=== PATIENT | male | born 1955 | race Caucasian/White ===

== ENCOUNTER → 2024-01-16 14:18 | Outpatient (REF) | payer MEDICARE, OTHER, SELFPAY | LOC: SDSPAT 14:18 | PROVIDERS: ATTENDING PHYSICIAN Surgery; FAMILY PHYSICIAN Family Medicine | DX: K42.9 Umbilical hernia without obstruction or gangrene (principal) | CPT/HCPCS: 36415; 93005 ==

== ENCOUNTER 2024-02-06 06:57 | Day surgery (SDC) | payer MEDICARE, OTHER, SELFPAY ==
[2024-01-16 14:30] VITALS: BMI 31.2
[2024-02-06] VITALS (8 sets, daily range): BP systolic 135–147; BP diastolic 69–85
[2024-02-06] MEDS: TYLENOL 1000 MG PO (12:05)
--- NOTE | 2024-02-06 15:38 | W.IMMPOSTOP ---
Surgical Immed Post Op Note
-
Primary Surgeon: Rashard
Assisting: Tori SOLIS
Pre-op Diagnosis: Umbilical hernia
Post-op Diagnosis: Incarcerated umbilical hernia
Procedure Performed: Robot assisted laparosopxcic repair of incarcwerated umbilical hernia (rTAPP)
Anesthesia Type: GETA + TAP block
Specimen / Cultures: None
Estimated Blood Loss: 5cc
Complications: None immediate
Operative Findings: 3.1cm x 2.2cm defect; 12cm x 12cm bard soft mesh
--- NOTE | 2024-02-06 15:39 | OR.RPT ---
Operative Report
Operative Report
Primary Surgeon: Rashard
Assisting: Tori SOLIS
Pre-op Diagnosis: Umbilical hernia
Post-op Diagnosis: Incarcerated umbilical hernia
Procedure Performed: Robot assisted laparoscopic repair of incarcerated umbilical hernia (rTAPP)
Anesthesia Type: GETA + TAP block
Specimen / Cultures: None
Estimated Blood Loss: 5cc
Complications: None immediate
Operative Findings: 3.1cm x 2.2cm defect; 12cm x 12cm bard soft mesh
Date of Surgery:� 02/06/24
Indications:� This 68M developed�a symptomatic umbilical hernia. Repair was thus indicated and laparoscopic approach was elected.
Description of procedure:� The patient was taken to the operating room and the correct site of surgery was verified. General anesthesia was induced and the patient was placed supine on the operating table with arms tucked.� The patient�s abdomen was
prepped and draped in standard sterile fashion. A time-out was completed verifying correct patient, procedure, site, positioning, and implants and special equipment prior to beginning this procedure. A stab incision was made in the left upper
quadrant, a Veress needle was inserted and proper position was confirmed by aspiration and saline drop test. Following this, pneumoperitoneum was created with insufflation of carbon dioxide to 12 mmHg. Then a 8mm robotic trocar was inserted at the
left anterior axillary line at the level of the umbilicus. A laparoscope was inserted and the area of initial trocar entry and Veress needle placement were both inspected and free of trauma. Two 8mm trocars were then placed a hand's breadth above
and below the initial trocar under direct visualization. The peritoneum was incised at the falciform ligament and a flap was developed in transverse and caudad directions using blunt and sharp dissection. The umbilical defect measured as above and
contained incarcerated fat. The defect was closed with 0 PDS stratafix suture.� A 12 x 12cm piece of bard soft mesh was passed into the abdomen. The mesh was moved into position to lay flat against the abdominal wall, centered on the defect. The
mesh was secured into place using 2-0 vicryl suture under the defect and at all four corners as well as correction along each side.� A 2-0 monocryl stratafix was used to close the flap. Additional 2-0 monocryl stratafix was used to repair flap rents
bilaterally. A transversus abdominis plane block was performed under laparoscopic vision using decadron/marcaine. After ensuring adequate hemostasis, the trocars were removed and the pneumoperitoneum allowed to escape. The trocar incisions were
closed at the skin level using 4-0 monocryl and topical skin adhesive. The patient tolerated the procedure well and was taken to the postanesthesia care unit in stable condition.
The assistance of Tori SOLIS was required due to the complexity of the procedure. During the procedure he assisted with retraction, resection, and closure of the wound.
== END 2024-02-06 17:28 | disposition home or self-care (01) ==
LOC: SDS 06:57
PROVIDERS: ATTENDING PHYSICIAN Surgery; FAMILY PHYSICIAN Family Medicine
DX: K42.0 Umbilical hernia with obstruction, without gangrene (principal)
CPT/HCPCS: 49592; C1781

== ENCOUNTER → 2024-05-30 12:15 | Outpatient (REF) | payer MEDICARE, OTHER, SELFPAY | LOC: RAD 12:15 | PROVIDERS: ATTENDING PHYSICIAN Family Medicine | DX: Z91.81 History of falling (principal); R07.81 Pleurodynia | CPT/HCPCS: 71101 ==

== ENCOUNTER → 2025-04-29 08:05 | Outpatient (REF) | payer MEDICARE, OTHER, SELFPAY | LOC: HWRAD 08:05 | PROVIDERS: ATTENDING PHYSICIAN Family Medicine | DX: R31.9 Hematuria, unspecified (principal) | CPT/HCPCS: 76770 ==

== ENCOUNTER → 2025-05-15 08:12 | Outpatient (REF) | payer MEDICARE, OTHER, SELFPAY ==
[2025-05-15 08:53] LABS: Hematocrit 42.5 % (39.0-52.0); Hemoglobin 14.6 g/dL (13.0-18.0); Mean Corp Hgb Conc. 34.4 g/dL (33.0-37.0); Mean Corpuscular Volume 90.8 fL (80.0-94.0); Platelet Count 258 10^3/uL (130-400); Red Cell Dist. Width 12.9 % (11.5-14.5)
[2025-05-15 10:05] LABS: Blood Urea Nitrogen 17 mg/dl (9-20); Calcium 9.6 mg/dl (8.4-10.2); Carbon Dioxide 28 mmol/L (22-30); Chloride 102 mmol/L (98-107); Glucose 117 mg/dl (70-99); Potassium 4.8 mmol/L (3.5-5.1); eGFR > 60.00
[2025-05-15 10:15] LABS: Sodium 137 mmol/L (135-145)
== END ==
LOC: SDSPAT 08:12
PROVIDERS: ATTENDING PHYSICIAN Specialist; FAMILY PHYSICIAN Family Medicine
DX: Z01.818 Encounter for other preprocedural examination (principal)
CPT/HCPCS: 36415; 80048; 85027; 93005

== ENCOUNTER 2025-05-17 06:13 | Day surgery (SDC) | payer MEDICARE, OTHER, SELFPAY ==
[2025-05-15 13:50] VITALS: BMI 30.5
[2025-05-17] VITALS (11 sets, daily range): BP systolic 103–160; BP diastolic 57–86; BMI 30.5
[2025-05-17] MEDS: CYSVIEW KIT 100 MG INTRAVES (08:19)
[2025-05-17] MEDS: NORMOSOL-R/PLASMALYTE-A 1000 IV (08:20)
[2025-05-17] MEDS: SYRINGE NON-PUMP 50 MG IRRIG ×2 (09:56→09:57)
[2025-05-17] MEDS: SYRINGE NON-PUMP 50 ML IRRIG ×2 (09:56→09:57)
[2025-05-17] MEDS: DILAUDID 0.5 MG IV (10:46)
== END 2025-05-17 11:49 | disposition home or self-care (01) ==
LOC: SDS 06:13
PROVIDERS: ATTENDING PHYSICIAN Specialist
DX: C67.9 Malignant neoplasm of bladder, unspecified (principal); N30.80 Other cystitis without hematuria; C67.3 Malignant neoplasm of anterior wall of bladder; C67.2 Malignant neoplasm of lateral wall of bladder
CPT/HCPCS: 52240; 51720; 88307; A9589; J9201

== ENCOUNTER → 2025-05-29 09:09 | Outpatient (REF) | payer MEDICARE, OTHER, SELFPAY | LOC: RAD 09:09 | PROVIDERS: ATTENDING PHYSICIAN Family Medicine | DX: M77.51 Other enthesopathy of right foot and ankle (principal); Z13.820 Encounter for screening for osteoporosis; M81.0 Age-related osteoporosis without current pathological fracture | CPT/HCPCS: 77080 ==

== ENCOUNTER → 2025-05-31 09:38 | Outpatient (REF) | payer MEDICARE, OTHER, SELFPAY | LOC: RAD 09:38 | PROVIDERS: ATTENDING PHYSICIAN Specialist; FAMILY PHYSICIAN Family Medicine | DX: C67.2 Malignant neoplasm of lateral wall of bladder (principal) | CPT/HCPCS: 74177; Q9967 ==

== ENCOUNTER → 2025-09-04 12:06 | Outpatient (REF) | payer MEDICARE, OTHER, SELFPAY ==
[2025-09-04 14:05] LABS: Hematocrit 41.0 % (39.0-52.0); Hemoglobin 14.6 g/dL (13.0-18.0); Mean Corp Hgb Conc. 35.6 g/dL (33.0-37.0); Mean Corpuscular Volume 87.6 fL (80.0-94.0); Platelet Count 280 10^3/uL (130-400); Red Cell Dist. Width 12.2 % (11.5-14.5)
[2025-09-04 14:29] LABS: Blood Urea Nitrogen 13 mg/dl (9-20); Calcium 10.1 mg/dl (8.4-10.2); Carbon Dioxide 31 mmol/L (22-30); Chloride 94 mmol/L (98-107); Glucose 102 mg/dl (70-99); Potassium 4.4 mmol/L (3.5-5.1); Sodium 131 mmol/L (135-145); eGFR > 60.00
== END ==
LOC: SDSPAT 12:06
PROVIDERS: ATTENDING PHYSICIAN Specialist; FAMILY PHYSICIAN Family Medicine
DX: Z01.818 Encounter for other preprocedural examination (principal)
CPT/HCPCS: 36415; 80048; 85027

== ENCOUNTER 2025-09-06 09:07 | Day surgery (SDC) | payer MEDICARE, OTHER, SELFPAY ==
[2025-09-04 13:47] VITALS: BMI 31.1
[2025-09-06] VITALS (7 sets, daily range): BP systolic 125–146; BP diastolic 59–86; BMI 31.1
[2025-09-06] MEDS: CYSVIEW KIT 100 MG INTRAVES (09:35)
[2025-09-06] MEDS: NORMOSOL-R/PLASMALYTE-A 1000 IV (09:36)
== END 2025-09-06 12:46 | disposition home or self-care (01) ==
LOC: SDS 09:07
PROVIDERS: ATTENDING PHYSICIAN Specialist
DX: N30.80 Other cystitis without hematuria (principal); Z85.51 Personal history of malignant neoplasm of bladder
CPT/HCPCS: 52224; C9738; 88305; A9589